=== PATIENT | male | born 1995 | race African-American/Black ===

== ENCOUNTER 2018-11-19 12:31 | Emergency (ER) | payer BC ==
--- NOTE | 2018-11-19 13:29 | ED Physician Documentation ---
PD HPI LOWER EXT INJURY - Stated complaint Stated Complaint: FALL/R FOOT INJ - Chief complaint Chief Complaint: Ext Problem - History obtained from History obtained from: Patient - History of Present Illness PD HPI LOW EXT INJURY LOCATION: Right, Foot Type of injury: Fall Where injury occurred: Other (he is visiting from [place], leaving in 2 days. Was at rental house, and stepped out onto slippery and fell, landing to right foot ball of the foot, with abrupt pain in mid/distal foot.) Timing - onset: Today Timing - details: Abrupt onset, Still present Worsened by: Moving (walking on foot - having to heel walk and still very painful.), Palpating Associated symptoms: Swelling. No: Weakness, Numbness Contributing factors: No: Prior ortho surgery Similar symptoms before: Has not had sx before Recently seen: Not recently seen Review of Systems Cardiac: denies: Chest pain / pressure GI: denies: Abdominal Pain Skin: denies: Abrasion (s), Laceration (s) Musculoskeletal: denies: Neck pain, Back pain Neurologic: denies: Focal weakness, Numbness, Head injury PD PAST MEDICAL HISTORY - Past Medical History Past Medical History: No - Past Surgical History Past Surgical History: No - Present Medications Home Medications: Ambulatory Orders Medication Instructions Recorded Confirmed Hydrocodone/Acetaminophen [[place] 1 each PO Q6H PRN #15 tablet 11/19/18 5-325 Tablet] - Allergies Allergies/Adverse Reactions: Allergies Allergy/AdvReac Type Severity Reaction Status Date / Time No Known Drug Allergies Allergy Verified 11/19/18 12:56 - Living Situation Living Situation: reports: With spouse/s.o., Other (visiting from [place], leaving in 2 days. 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 ) Living Arrangement: reports: At home - Social History Does the pt smoke?: No Smoking Status: Never smoker Does the pt drink ETOH?: No Does the pt have substance abuse?: No - Immunizations Immunizations are current?: Yes PD ED PE NORMAL - Vitals Vital signs reviewed: Yes - General General: Alert and oriented X 3, No acute distress, Well developed/nourished - HEENT HEENT: Atraumatic - Neck Neck: Supple, no meningeal sign, No bony TTP - Derm Derm: Normal color, Warm and dry - Extremities Extremities: Other (right foot with swelling and tenderness through mid MTs on 3rd/4th toes mostly, and palpable dislocation/deformity at MTP of little toe. ) - Neuro Neuro: No motor deficit (hurts with ROM, and most limited ROM is at little toe. ), No sensory deficit Results - Vitals Vitals: Vital Signs - 24 hr 11/19/18 11/19/18 12:54 15:12 Temperature 36.7 C Heart Rate 101 H 84 Respiratory 18 15 Rate Blood Pressure 117/66 116/65 O2 Saturation 97 100 Oxygen O2 Source Room air - Rads (name of study) right foot Radiology: Prelim report reviewed, EMP read contemporaneously (fractures MTs 2-4 with displacement of 3 and 4. dislocation little toe at MTP. ), See rad report Procedures - Reduction Body part reduced: Right, Toe Fracture or dislocation: Dislocation Anesthesia: Digital block, Lidocaine (enter cc) Reduction aftercare: NV intact, Alignment improved PD MEDICAL DECISION MAKING - ED course Complexity details: considered differential, d/w patient, d/w senior management consultant (Dr. Salazar, Ortho - that patient should follow up back home to allow time for swelling to reduce. Likely will need surgical pinning for best positioning. ) Departure - Departure Disposition: 01 Home, Self Care Clinical Impression: Foot fracture, right Qualifiers: Encounter type: initial encounter Fracture type: closed Qualified Code(s): S92.901A - Unspecified fracture of right foot, initial encounter for closed fracture Condition: Stable Record reviewed to determine appropriate education?: Yes Instructions: ED Fx Foot Prescriptions: Hydrocodone/Acetaminophen [[place] 5-325 Tablet] 1 each PO Q6H PRN #15 tablet PRN Reason: Pain Comments: Use the cast boot early with the idea of a cast so should be on most of the time to help support the foot. He can be off briefly for changing socks and close of course. Adjusted as needed for the swelling and pressure. Contact your primary care back home and see if they can arrange a orthopedic follow-up in particular of wildfire prevention specialist. It could also be a oem sales manager wildfire prevention specialist. Elevate and rest her foot often. Ice periodically today and tomorrow. Consider an anti-inflammatory such as ibuprofen or naproxen twice daily for the next week or 2. Add Tylenol or hydrocodone if needed for pain. Follow-up with the rn gyn when back home within the next 1-1-1/2 weeks. Discharge Date/Time: 11/19/18 15:00
--- NOTE | 2018-11-19 13:30 | XRAY Report ---
Reason: pain after fall Procedure Date: 11/19/2018 Accession Number: [id number] / [id number] Procedure: XR - Foot 3 View RT CPT Code: FULL RESULT: EXAM: RIGHT FOOT RADIOGRAPHY EXAM DATE: 11/19/2018 01:20 PM. CLINICAL HISTORY: Right foot pain status post ground-level fall. COMPARISON: None. TECHNIQUE: 3 views. FINDINGS: Bones: Transverse nondisplaced fracture of the second metatarsal. Displaced transverse fractures through the third and fourth metatarsals. Joints: Lateral dislocation of the proximal fifth phalanx on the fifth metatarsal. Soft Tissues: Normal. No soft tissue swelling. IMPRESSION: 1. Nondisplaced transverse fracture through the second metatarsal. 2. Displaced transverse fractures to the third and fourth metatarsals. 3. Lateral dislocation of the proximal fifth phalanx on the fifth metatarsal. [facility]
[2018-11-19] MEDS ORDERED: HYDROcod/ACETAM 5/325 MG TABLET PO STA (14:18)
[2018-11-19] MEDS ORDERED: IBUPROFEN 600 MG TABLET PO STA (14:18)
[2018-11-19 15:13] VITALS: BP 116/65
== END 2018-11-19 15:00 | disposition home or self-care (01) ==
LOC: ED 12:31
DX: S92.351A Displaced fracture of fifth metatarsal bone, right foot, initial encounter for closed fracture (principal); S92.324A Nondisplaced fracture of second metatarsal bone, right foot, initial encounter for closed fracture; S92.331A Displaced fracture of third metatarsal bone, right foot, initial encounter for closed fracture; S92.341A Displaced fracture of fourth metatarsal bone, right foot, initial encounter for closed fracture; W01.0XXA Fall on same level from slipping, tripping and stumbling without subsequent striking against object, initial encounter; Y92.009 Unspecified place in unspecified non-institutional (private) residence as the place of occurrence of the external cause
CPT/HCPCS: 28660; 73630; 99283; A9270